=== PATIENT | female | born 1940 | race Caucasian/White ===

== ENCOUNTER 2021-02-18 08:58 | Day surgery (SDC) | payer MEDICARE, OTHER, SELFPAY ==
[2021-02-12 13:57] VITALS: BMI 35.1
--- NOTE | 2021-02-13 12:17 | MHC.SHP ---
Pre-Procedural Eval Section A The patient is an INPATIENT: No The History & Physical has been completed within 30 days and I have reviewed it.: Yes Section B Chief Complaint: Cataract Right Eye Allergies: Allergies Allergy/AdvReac Type Severity Reaction Status Date / Time codeine Allergy Unknown- Verified 02/13/21 12:02 per H&P levofloxacin [From Levaquin] Allergy unknown - Verified 02/13/21 12:02 per H&P Plan Diagnosis/Plan: Unchanged I have reviewed the history and physical and performed a pertinent physical examination on my patient. No changes have occurred unless specified.
--- NOTE | 2021-02-15 09:43 | HO.ANESPROP2 ---
Documented by User: Tari Conwayney 02/15/21 09:49 HPI - Anesthesia Eval Consult details Narrative: 80yo F for Right Cataract Extraction IOL Insertion No prev cataract on record PCP cleared [facility] Past Medical History Medical History COVID-19 vaccine series completed DM type 2 (diabetes mellitus, type 2) History of skin cancer Hypertension On beta adalberto at home Surgical History Surgical History History of arthroscopy of both knees History of back surgery History of bilateral carpal tunnel release History of total bilateral knee replacement History of umbilical hernia repair Hx of section Hx of cholecystectomy Hx of foot surgery Hx of hysterectomy S/P lumbar microdiscectomy Social History Social History Are you a primary infant childcare provider to a significant other at home: No Do you presently have visiting nurse or other home services: No Smoking Status: Former smoker Smoking Quit Date: 1962 Second Hand Smoke Exposure: No Use of substances other than those prescribed or required for medical reasons: No Have you been hit, kicked, punched, or otherwise hurt by someone within the past year? If so, by whom?: No Are you DNR?: No Advance Directives: No Advance Directives Information Provided: No Advance Directives on File: No Recently lost weight without trying: No Eating poorly because of decreased appetite: No Nutrition Risks: No Nutritional Risk Meds Allergies Allergy/AdvReac Type Severity Reaction Status Date / Time codeine Allergy Unknown- Verified 02/13/21 12:02 per H&P levofloxacin [From Levaquin] Allergy unknown - Verified 02/13/21 12:02 per H&P Home Medications Medication Instructions Recorded Confirmed Last Taken Type celecoxib 1 tab PO BID 02/12/21 02/12/21 Unknown History fluticasone propionate 2 spray INTRANASAL DAILY 02/12/21 02/12/21 Unknown History metformin 1 tab PO BID 02/12/21 02/12/21 Unknown History metoprolol succinate 1 tab PO DAILY 02/12/21 02/12/21 02/18/21 History omeprazole 1 cap PO DAILY 02/12/21 02/12/21 02/18/21 History Exam Exam Date and Time: February 15, 2021 0943 Height,Weight and Vital Signs: Height 5 ft 5 in Weight 95.708 kg Assessment and Plan Assessment Anesthesia Assessment: Chart Reviewed Documented by User: Brittny Bansal 02/18/21 10:44 PMF Past Medical History Medical History COVID-19 vaccine series completed DM type 2 (diabetes mellitus, type 2) History of skin cancer Hypertension On beta adalberto at home Family History Family history of problems with anesthesia: No Surgical History Surgical History History of arthroscopy of both knees History of back surgery History of bilateral carpal tunnel release History of total bilateral knee replacement History of umbilical hernia repair Hx of section Hx of cholecystectomy Hx of foot surgery Hx of hysterectomy S/P lumbar microdiscectomy History of Problems with Anesthesia: No Social History Social History Are you a primary infant childcare provider to a significant other at home: No Do you presently have visiting nurse or other home services: No Smoking Status: Former smoker Smoking Quit Date: 1962 Second Hand Smoke Exposure: No Use of substances other than those prescribed or required for medical reasons: No Have you been hit, kicked, punched, or otherwise hurt by someone within the past year? If so, by whom?: No Are you DNR?: No Advance Directives: No Advance Directives Information Provided: No Advance Directives on File: No Recently lost weight without trying: No Eating poorly because of decreased appetite: No Nutrition Risks: No Nutritional Risk Meds Allergies Allergy/AdvReac Type Severity Reaction Status Date / Time codeine Allergy Unknown- Verified 02/13/21 12:02 per H&P levofloxacin [From Levaquin] Allergy unknown - Verified 02/13/21 12:02 per H&P Home Medications Medication Instructions Recorded Confirmed Last Taken Type celecoxib 1 tab PO BID 02/12/21 02/12/21 Unknown History fluticasone propionate 2 spray INTRANASAL DAILY 02/12/21 02/12/21 Unknown History metformin 1 tab PO BID 02/12/21 02/12/21 Unknown History metoprolol succinate 1 tab PO DAILY 02/12/21 02/12/21 02/18/21 History omeprazole 1 cap PO DAILY 02/12/21 02/12/21 02/18/21 History Exam Height,Weight and Vital Signs: Vital Signs Temp Pulse Resp BP Pulse Ox 02/18/21 10:38 98.0 F 68 16 142/79 H 97 Pertinent Lab Results Pertinent Lab Results: POC 107 Airway Mallampati Class: II TM Dist: >3cm Neck ROM: Full Heart: RRR Lungs: CTAB Assessment and Plan Assessment Anesthesia Assessment: Anesthesia Plan Discussed and Chart Reviewed Final Anesthetic Review NPO: Yes ASA Class: II Final Preanesthetic Review: No Changes in Pt Med Stat, Meds/Allgs Chart Reviewed, Consent Obtained/Reviewed and Anes Risks/Benef Reviewed Patient Risk: Low Procedure Risk: Low Assessment/Block/Sedation in SS: Assess/Block/Sedation-SS Anesthetic Plan Anesthetic Plan: MAC: Disposition: Standard PACU
[2021-02-18] MEDS: Tetracaine HCl/PF 0.5% Oph Sol 4 ML DROPS 1 DROP EYE-RIGHT (10:33)
[2021-02-18] MEDS: Tropicamide 1 % Ophth Sol 3 ML BTL 1 DROP EYE-RIGHT ×3 (10:36→10:47)
[2021-02-18 10:38] VITALS: BP 142/79; PULSE 68; RESP 16; TEMP 36.7; O2SAT 97
[2021-02-18] MEDS: Phenylephrine HCL 2.5% Oph SoL 2 ML BOTTLE 1 DROP EYE-RIGHT ×3 (10:39→10:51)
[2021-02-18 10:45] LABS: Glucose, Whole Blood 107 mg/dL (60-115)
[2021-02-18] MEDS: Lactated Ringers 500 ML 50 ML IV (10:56)
--- NOTE | 2021-02-18 11:38 | HO.PNOPHT ---
Ophthalmology Procedure Procedure Date of Service: 02/18/21 Ophthalmology Viscoelastic: Healon Duet Dual Pack Pro Ophthalmology Lenses: TECNIS [id number] (20.5) Procedure Notes: PREOPERATIVE DIAGNOSIS: Decreased visual acuity right eye secondary to cataract POSTOPERATIVE DIAGNOSIS: Same PROCEDURE: Right cataract extraction with intraocular lens insertion SURGEON: Oscar Quintero M.D. ANESTHESIA: Topical/MAC ESTIMATED BLOOD LOSS: None COMPLICATIONS: None After obtaining informed consent, the patient was brought to the operating room suite and placed in the supine position. After adequate sedation per anesthesia, topical drops of Tetracaine were given to the right eye. The eye was then prepped and draped in the usual sterile fashion. The operating room microscope was then positioned over the operative eye and a lid speculum placed. A paracentesis was created. Viscoelastic was then instilled into the anterior chamber. A three plane incision was then created temporally, utilizing a 2.85 mm keratome. Capsulotomy forceps were then utilized to create a circular tear capsulotomy. Hydrodissection and hydrodelineation were carried out until adequate mobilization of the nucleus occurred. Phacoemulsification was then utilized to remove the dense central nucleus followed by removal of the cortical material utilizing the automated aspiration irrigation unit. Viscoelastic was instilled into the posterior capsular bag followed by placement of a posterior chamber intraocular lens without difficulty. The residual Viscoelastic was then removed utilizing the automated IA machine. The wound was checked and found to be watertight. The patient tolerated the procedure well and the lid speculum was removed. Intracameral injection of Vigamox 0.1 mL followed by a subtenon injection of Kenalog-40 0.2 mL were administered. The patient will be seen in the a.m.
[2021-02-18 12:04] VITALS: BP 150/65; PULSE 58; RESP 16; TEMP 36.4; O2SAT 97
== END 2021-02-18 12:33 | disposition home or self-care (01) ==
PROVIDERS: PCP Internal Medicine; Visit Provider Ophthalmology
PROC: (CPT 66985; principal; 2021-02-18 11:20)
DX: H25.11 Age-related nuclear cataract, right eye (principal); H54.7 Unspecified visual loss; H35.031 Hypertensive retinopathy, right eye; I10 Essential (primary) hypertension; E11.9 Type 2 diabetes mellitus without complications; Z79.84 Long term (current) use of oral hypoglycemic drugs; Z79.899 Other long term (current) drug therapy; Z85.828 Personal history of other malignant neoplasm of skin; Z87.891 Personal history of nicotine dependence
CPT/HCPCS: 66984; 82947; J2250; J2405; J3010; J3300; V2632

== ENCOUNTER 2021-03-04 09:08 | Day surgery (SDC) | payer MEDICARE, OTHER, SELFPAY ==
[2021-02-12 14:00] VITALS: BMI 35.1
--- NOTE | 2021-02-27 12:25 | P.CONAN_ITS ---
Documented by User: Tari Griggs 02/27/21 12:26 HPI - Anesthesia Eval Consult details Narrative: 80yo F for Left Cataract Extraction IOL Insertion Right eye 5/3 with TIVA: Fent 25, MIdaz 1 PCP cleared [facility] Past Medical History Medical History COVID-19 vaccine series completed DM type 2 (diabetes mellitus, type 2) History of skin cancer Hypertension On beta adalberto at home Family History Family history of problems with anesthesia: No Surgical History Surgical History History of arthroscopy of both knees History of back surgery History of bilateral carpal tunnel release History of total bilateral knee replacement History of umbilical hernia repair Hx of cataract extraction Hx of section Hx of cholecystectomy Hx of foot surgery Hx of hysterectomy S/P lumbar microdiscectomy History of Problems with Anesthesia: No Social History Social History Are you a primary progressive care manager to a significant other at home: No Do you presently have visiting nurse or other home services: No Smoking Status: Former smoker Smoking Quit Date: 1962 Second Hand Smoke Exposure: No Use of substances other than those prescribed or required for medical reasons: No Have you been hit, kicked, punched, or otherwise hurt by someone within the past year? If so, by whom?: No Are you DNR?: No Advance Directives: No Advance Directives Information Provided: No Advance Directives on File: No Recently lost weight without trying: No Eating poorly because of decreased appetite: No Nutrition Risks: No Nutritional Risk Meds Allergies Allergy/AdvReac Type Severity Reaction Status Date / Time codeine Allergy Unknown- Verified 02/13/21 12:02 per H&P levofloxacin [From Levaquin] Allergy unknown - Verified 02/13/21 12:02 per H&P Home Medications Medication Instructions Recorded Confirmed Last Taken Type celecoxib 1 tab PO BID 02/12/21 02/12/21 Unknown History fluticasone propionate 2 spray INTRANASAL DAILY 02/12/21 02/12/21 Unknown History metformin 1 tab PO BID 02/12/21 02/12/21 Unknown History metoprolol succinate 1 tab PO DAILY 02/12/21 02/12/21 02/18/21 History omeprazole 1 cap PO DAILY 02/12/21 02/12/21 02/18/21 History Exam Exam Date and Time: February 27, 2021 1225 Height,Weight and Vital Signs: Height 5 ft 5 in Weight 95.708 kg Assessment and Plan Assessment Anesthesia Assessment: Chart Reviewed Documented by User: Brittny Bansal 03/04/21 11:00 PMFSH Past Medical History Medical History COVID-19 vaccine series completed DM type 2 (diabetes mellitus, type 2) History of skin cancer Hypertension On beta adalberto at home Surgical History Surgical History History of arthroscopy of both knees History of back surgery History of bilateral carpal tunnel release History of total bilateral knee replacement History of umbilical hernia repair Hx of cataract extraction Hx of section Hx of cholecystectomy Hx of foot surgery Hx of hysterectomy S/P lumbar microdiscectomy Social History Social History Are you a primary progressive care manager to a significant other at home: No Do you presently have visiting nurse or other home services: No Smoking Status: Former smoker Smoking Quit Date: 1962 Second Hand Smoke Exposure: No Use of substances other than those prescribed or required for medical reasons: No Have you been hit, kicked, punched, or otherwise hurt by someone within the past year? If so, by whom?: No Are you DNR?: No Advance Directives: No Advance Directives Information Provided: No Advance Directives on File: No Recently lost weight without trying: No Eating poorly because of decreased appetite: No Nutrition Risks: No Nutritional Risk Meds Allergies Allergy/AdvReac Type Severity Reaction Status Date / Time codeine Allergy Unknown- Verified 02/13/21 12:02 per H&P levofloxacin [From Levaquin] Allergy unknown - Verified 02/13/21 12:02 per H&P Home Medications Medication Instructions Recorded Confirmed Last Taken Type celecoxib 1 tab PO BID 02/12/21 02/12/21 Unknown History fluticasone propionate 2 spray INTRANASAL DAILY 02/12/21 02/12/21 Unknown History metformin 1 tab PO BID 02/12/21 02/12/21 Unknown History metoprolol succinate 1 tab PO DAILY 02/12/21 02/12/21 02/18/21 History omeprazole 1 cap PO DAILY 02/12/21 02/12/21 02/18/21 History Exam Height,Weight and Vital Signs: Vital Signs Temp Pulse Resp BP Pulse Ox 03/04/21 10:35 97.3 F 62 18 141/71 H 97 Pertinent Lab Results Pertinent Lab Results: POC 117 Airway Mallampati Class: II TM Dist: >3cm Neck ROM: Full Heart: RRR Lungs: CTAB Assessment and Plan Assessment Anesthesia Assessment: Anesthesia Plan Discussed and Chart Reviewed Final Anesthetic Review NPO: Yes ASA Class: II Final Preanesthetic Review: No Changes in Pt Med Stat, Meds/Allgs Chart Reviewed, Consent Obtained/Reviewed and Anes Risks/Benef Reviewed Patient Risk: Low Procedure Risk: Low Assessment/Block/Sedation in SS: Assess/Block/Sedation-SS Anesthetic Plan Anesthetic Plan: MAC: Disposition: Standard PACU
[2021-03-04 10:35] VITALS: BP 141/71; PULSE 62; RESP 18; TEMP 36.3; O2SAT 97
[2021-03-04] MEDS: Tetracaine HCl/PF 0.5% Oph Sol 4 ML DROPS 1 DROP EYE-LEFT (10:51)
[2021-03-04] MEDS: Tropicamide 1 % Ophth Sol 3 ML BTL 1 DROP EYE-LEFT ×3 (10:53→10:59)
[2021-03-04] MEDS: Lactated Ringers 500 ML 50 ML IV (10:54)
[2021-03-04] MEDS: Phenylephrine HCL 2.5% Oph SoL 2 ML BOTTLE 1 DROP EYE-LEFT ×3 (10:55→11:01)
--- NOTE | 2021-03-04 11:07 | HO.PNOPHT ---
Ophthalmology Procedure Procedure Date of Service: 03/04/21 Ophthalmology Viscoelastic: Healct Duet Dual Pack Pro Ophthalmology Lenses: TECMARY BETH [id number] (22) Procedure Notes: PREOPERATIVE DIAGNOSIS: Decreased visual acuity left eye secondary to cataract POSTOPERATIVE DIAGNOSIS: Same PROCEDURE: Left cataract extraction with intraocular lens insertion SURGEON: Oscar Quintero M.D. ANESTHESIA: Topical/MAC ESTIMATED BLOOD LOSS: None COMPLICATIONS: Broken trailing haptic After obtaining informed consent, the patient was brought to the operation room suite and placed in the supine position. After adequate sedation per anesthesia, topical drops of Tetracaine were given to the left eye. The eye was then prepped and draped in the usual sterile fashion. The operating room microscope was then positioned over the operative eye and a lid speculum placed. A paracentesis was created. Viscoelastic was then instilled into the anterior chamber. A three plane incision was then created temporally, utilizing a 2.85 mm keratome. Capsulotomy forceps were then utilized to create a circular tear capsulotomy. Hydrodissection and hydrodelineation were carried out until adequate mobilization of the nucleus occurred. Phacoemulsification was then utilized to remove the dense central nucleus followed by removal of the cortical material utilizing the automated aspiration irrigation unit. Viscoat elastic was instilled into the posterior capsular bag followed by placement of a posterior chamber intraocular lens without difficulty.The trailing haptic was broken, the PCIOL was exchanged intraocularly. The residual Viscoat elastic was then removed utilizing the automated IA machine. The wound was check and found to be watertight. The patient tolerated the procedure well and the lid speculum was removed. Intracameral injection of Vigamox 0.1 mL followed by a subtenon injection of Kenalog-40 0.2 mL were administered. The patient will be seen in the a.m.
[2021-03-04 11:21] LABS: Glucose, Whole Blood 117 mg/dL (60-115)
[2021-03-04 11:34] VITALS: BP 134/62; PULSE 55; RESP 18; TEMP 36.4; O2SAT 94
== END 2021-03-04 11:55 | disposition home or self-care (01) ==
PROVIDERS: PCP Internal Medicine; Visit Provider Ophthalmology
PROC: (CPT 66985; principal; 2021-03-04 11:40)
DX: T85.29XA Other mechanical complication of intraocular lens, initial encounter (principal); H25.12 Age-related nuclear cataract, left eye; Y83.1 Surgical operation with implant of artificial internal device as the cause of abnormal reaction of the patient, or of later complication, without mention of misadventure at the time of the procedure; Y92.234 Operating room of hospital as the place of occurrence of the external cause
CPT/HCPCS: 66984; 66986; 82947; J3010; J3300; V2632

== ENCOUNTER 2025-01-10 13:31 | Outpatient (AMB) | payer MEDICARE, OTHER, SELFPAY ==
--- NOTE | 2025-01-10 13:26 | MHC.PC.OV ---
Vital Signs 01/10/25 13:33 Height 5 ft 5 in Weight 179 lb BMI 29.8 BP 138/76 Respiration 16 Pulse 74 Pulse Source Pulse Oximeter Temp 97.8 F Temp Source Temporal Artery Scan Pulse Oximetry (%) 99 Oxygen Delivery Method Room Air Intake Visit Reasons: New patient Line Up Worker Required: No Accompanied by: Self / Same As Patient Allergies codeine Allergy (Verified 01/10/25 13:26) Unknown- per H&P levofloxacin [From Levaquin] Allergy (Verified 01/10/25 13:26) unknown - per H&P Tobacco use date assessed: 01/10/25 Fall risk assessment: No Falls in past year Last assessed Fall Risk: 01/10/25 Dental Screening Dental Screen Date: 01/10/25 Did you have a dental visit in the last 12 months?: Yes Did you have a dental problem in the last 6 months where you did not have access to dental care?: No PFSH Medical History COVID-19 vaccine series completed History of skin cancer On beta adalberto at home Hypertension DM type 2 (diabetes mellitus, type 2) Surgical History Hx of cataract extraction History of back surgery History of umbilical hernia repair History of total bilateral knee replacement History of bilateral carpal tunnel release History of arthroscopy of both knees Hx of cholecystectomy Hx of section Hx of hysterectomy S/P lumbar microdiscectomy Hx of foot surgery Family History (Updated 01/10/25 @ 13:41 by JOSUÉ Siddiqui) Mother AD (Alzheimer's disease) Father Kidney failure Social History (Updated 01/10/25 @ 13:41 by JOSUÉ Siddiqui) Housing: House Are you a primary career development counselor to a significant other at home: No Do you presently have visiting nurse or other home services: No Alcohol intake: current Alcohol intake frequency: does not drink Patient Tobacco Use Status: Former Tobacco user service: No Current occupational status: retired Cognitive needs: No Hearing needs: No Vision needs: Yes (rx glasses) Questionnaire PHQ-9 Over the last 2 weeks, how often have you been bothered by any of the following problems? 1. Little interest or pleasure in doing things: not at all 2. Feeling down, depressed, or hopeless: not at all 3. Trouble falling or staying asleep, or sleeping too much: not at all 4. Feeling tired or having little energy: not at all 5. Poor appetite or overeating: not at all 6. Feeling bad about yourself - or that you are a failure or have let yourself or your family down: not at all 7. Trouble concentrating on things, such as reading the newspaper or watching television: not at all 8. Moving or speaking so slowly that other people could have noticed. Or the opposite - being so fidgety or restless that you have been moving around a lot more than usual: not at all 9. Thoughts that you would be better off or of hurting yourself in some way: not at all Total score: 0 Source: Developed by Drs. Mo Cid, Jennifer Santamaria, Rip Medina and colleagues, with an educational wilmar from [employer]. Thrive Questionnaire Date Thrive assessed: 01/10/25 I am a: Patient What is your living situation today?: I have a steady place to live Within the past 12 months, did the food you bought not last and you didn't have the money to get more?: Never true Within the past 12 months, did you worry whether your food would run out before you got money to buy more?: Never true Do you have trouble paying for medicines?: No Do you have trouble getting transportation to medical appointments?: No Do you have trouble paying your heating and electricity bill?: No Do you have trouble taking care of your child, family member or friend?: No Do you have trouble with day-to-day activities such as bathing, preparing meals, shopping, managing finances, etc.?: No Are you currently unemployed and looking for a job?: No Are you interested in more education?: No Please select the resources that you would like help with: None THRIVE Score: 0 AUDIT C Alcohol Use Questionnaire (AUDIT-C) 1. How often do you have a drink containing alcohol?: Never 3. How often do you have six or more drinks on one occasion?: Never Total Score: 0 ANNAMARIA-7 AMB Questionnaire ANNAMARIA-7 Date ANNAMARIA - 7 assessed: 01/10/25 Feeling nervous, anxious, or on edge: 0 = Not at all Not being able to stop or control worryin = Not at all Worrying too much about different things: 0 = Not at all Trouble relaxin = Not at all Being so restless that it is hard to sit still: 0 = Not at all Becoming easily annoyed or irritable: 0 = Not at all Feeling afraid as if something awful might happen: 0 = Not at all Total ANNAMARIA-7 score (0-4 normal; 5-9 mild; 10-14 moderate; 15-21 severe): 0 Source: Developed by Drs. Mo Cid, Jennifer Santamaria, Rip Medina and colleagues, with an educational wilmar from [employer]. Physical exam (Primary Care) Vital Signs: Last Vital Signs Temp 97.8 F 01/10/25 13:33 Pulse 74 01/10/25 13:33 Resp 16 01/10/25 13:33 BP 138/76 01/10/25 13:33 Pulse Ox 99 01/10/25 13:33 Oxygen Delivery Method Room Air 01/10/25 13:33 BMI result Body Mass Index 29.8 Tobacco/Smoking Status: Tobacco use Status Tobacco use date assessed 01/10/25 01/10/25 13:29 Patient Tobacco Use Status Former Tobacco user 01/10/25 13:41 PHQ-9: PHQ-9 Score PHQ-9: Total score 0 01/10/25 13:41 Thrive Assessment: Date of Thrive Assessment Date Thrive assessed 01/10/25 01/10/25 13:29 Coding Level of Care Code New Pt Level 4 (03715) Complex EM visit Add On G2211 Diagnoses Wart of face B07.9 Assessment & Plan Assessment & Plan (1) Wart of face: Code(s): B07.9 - Viral wart, unspecified Plan: Prior history of basal cell carcinoma on the nose. Referral for Dermatology made Plan History of Present Illness The patient is an 84-year-old female presenting for a follow-up on a precancerous lesion and to discuss her medication regimen. On her face, approximately 22 years prior, she had a basal cell carcinoma treated by excision and a skin graft by a plastic surgeon. Recently, she has noticed a recurring scab at the site, causing discomfort, especially when manually removed, and has been previously evaluated by dermatology. Additionally, she seeks the management of her hypertensive condition, currently on Metoprolol, with a stable cardiovascular profile. 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 - Exercises regularly using a recumbent stationary bicycle. - Resides in [place] for 22 years. - Drives both day and night without difficulty, post-cataract surgery. - Has undergone bilateral knee replacements, enhancing mobility. Review of Systems - Skin: Reports recurring scab formation on the face, previously identified as basal cell carcinoma. - General: Denies any new health concerns. Physical Exam General: Cooperative and healthy appearing Nutritional Appearance: Well nourished Orientation/consciousness: Patient oriented x3 Limitations: No limitations Head: Normal to inspection General: Appearance normal, both eyes and all related structures Neck: Normal visual inspection Chest: Normal palpation of entire chest wall Respiratory: Normal respiratory effort Neurology: Patient oriented x3 Nasal Septum: Skin, verrucous wart Results Plan Referral to a dish person in [place] is provided for further evaluation of the recurring precancerous lesion. I outlined the process for prescription refills of Metoprolol, emphasizing the need to coordinate with her pharmacy well before the medication runs out. Further management includes monitoring her hypertension and ensuring her blood work is reviewed periodically to assess health status. Patient was informed and verbally consented to the use of an ambient scribe for clinic note documentation during this visit. Discussion Notes I discussed with the patient the need for further dermatological evaluation of the recurring facial lesion due to personal discomfort and the lesion's potential progression if untreated. We reviewed the process for medication refills, emphasizing outreach to her pharmacy. Discussions included her satisfaction with her current physical capability, post knee replacement, and cataract surgery, which have enhanced her quality of life. Follow-up care, particularly for skin assessment, was highlighted. Patient Instructions - Initiate contact with your pharmacy for Metoprolol refills one week before the medication is depleted. - Attend referred dermatology appointment in [place] for the facial lesion. - Maintain regular exercises on your stationary bike. - Report any changes in symptoms or discomfort related to the skin lesion promptly. Orders: Referrals Dermatology Referral B07.9 - Viral wart, unspecified
[2025-01-10 13:33] VITALS: BP 138/76; PULSE 74; RESP 16; TEMP 36.6; O2SAT 99; BMI 29.8
== END 2025-01-10 13:55 | disposition home or self-care (01) ==
LOC: HO.HMCSH 13:31
PROVIDERS: PCP Internal Medicine; Visit Provider Internal Medicine
DX: B07.9 Viral wart, unspecified (principal)

== ENCOUNTER → 2025-01-10 13:31 | Outpatient (BNVA) | payer MEDICARE, OTHER, SELFPAY | PROVIDERS: PCP Internal Medicine; Visit Provider Internal Medicine | DX: B07.9 Viral wart, unspecified (principal) | CPT/HCPCS: 99202 ==

== ENCOUNTER 2025-07-11 14:50 | Outpatient (AMB) | payer MEDICARE, OTHER, SELFPAY ==
[2025-07-11 14:56] VITALS: BP 158/80; PULSE 74; RESP 14; TEMP 36.8; O2SAT 97; BMI 30.4
--- NOTE | 2025-07-11 14:56 | MHC.PC.OV ---
Vital Signs 07/11/25 14:56 Height 5 ft 5 in Weight 183 lb BMI 30.4 BP 158/80 H Respiration 14 Pulse 74 Pulse Source Pulse Oximeter Temp 98.2 F Temp Source Temporal Artery Scan Pulse Oximetry (%) 97 Oxygen Delivery Method Room Air Intake Visit Reasons: 6 month f/u Cloth Grader Required: No Accompanied by: Self / Same As Patient Allergies codeine Allergy (Verified 07/11/25 14:56) Unknown- per H&P levofloxacin (From Levaquin) Allergy (Verified 07/11/25 14:56) unknown - per H&P Tobacco use date assessed: 07/11/25 Dental Screening Dental Screen Date: 01/10/25 [facility] Medical History (Updated 07/11/25 @ 15:36 by Luis Carmichael MD) Essential hypertension COVID-19 vaccine series completed History of skin cancer On beta adalberto at home Hypertension DM type 2 (diabetes mellitus, type 2) Surgical History Hx of cataract extraction History of back surgery History of umbilical hernia repair History of total bilateral knee replacement History of bilateral carpal tunnel release History of arthroscopy of both knees Hx of cholecystectomy Hx of section Hx of hysterectomy S/P lumbar microdiscectomy Hx of foot surgery Family History Mother AD (Alzheimer's disease) Father Kidney failure Social History Housing: House Are you a primary cardiac care nurse to a significant other at home: No Do you presently have visiting nurse or other home services: No Alcohol intake: current Alcohol intake frequency: does not drink Patient Tobacco Use Status: Former Tobacco user service: No Current occupational status: retired Cognitive needs: No Hearing needs: No Vision needs: Yes (rx glasses) Questionnaire PHQ-9 Over the last 2 weeks, how often have you been bothered by any of the following problems? 1. Little interest or pleasure in doing things: not at all 2. Feeling down, depressed, or hopeless: not at all 3. Trouble falling or staying asleep, or sleeping too much: not at all 4. Feeling tired or having little energy: not at all 5. Poor appetite or overeating: not at all 6. Feeling bad about yourself - or that you are a failure or have let yourself or your family down: not at all 7. Trouble concentrating on things, such as reading the newspaper or watching television: not at all 8. Moving or speaking so slowly that other people could have noticed. Or the opposite - being so fidgety or restless that you have been moving around a lot more than usual: not at all 9. Thoughts that you would be better off or of hurting yourself in some way: not at all Total score: 0 Source: Developed by Drs. Mo Cid, Jennifer Santamaria, Rip Medina and colleagues, with an educational wilmar from [employer]. Thrive Questionnaire Date Thrive assessed: 01/10/25 I am a: Patient What is your living situation today?: I have a steady place to live Within the past 12 months, did the food you bought not last and you didn't have the money to get more?: Never true Within the past 12 months, did you worry whether your food would run out before you got money to buy more?: Never true Do you have trouble paying for medicines?: No Do you have trouble getting transportation to medical appointments?: No Do you have trouble paying your heating and electricity bill?: No Do you have trouble taking care of your child, family member or friend?: No Do you have trouble with day-to-day activities such as bathing, preparing meals, shopping, managing finances, etc.?: No Are you currently unemployed and looking for a job?: No Are you interested in more education?: No Please select the resources that you would like help with: None THRIVE Score: 0 AUDIT C Alcohol Use Questionnaire (AUDIT-C) 1. How often do you have a drink containing alcohol?: Never 3. How often do you have six or more drinks on one occasion?: Never Total Score: 0 ANNAMARIA-7 AMB Questionnaire ANNAMARIA-7 Date ANNAMARIA - 7 assessed: 01/10/25 Feeling nervous, anxious, or on edge: 0 = Not at all Not being able to stop or control worryin = Not at all Worrying too much about different things: 0 = Not at all Trouble relaxin = Not at all Being so restless that it is hard to sit still: 0 = Not at all Becoming easily annoyed or irritable: 0 = Not at all Feeling afraid as if something awful might happen: 0 = Not at all Total ANNAMARIA-7 score (0-4 normal; 5-9 mild; 10-14 moderate; 15-21 severe): 0 Source: Developed by Drs. Mo Cid, Jennifer Santamaria, Rip Medina and colleagues, with an educational wilmar from [employer]. Physical exam (Primary Care) Vital Signs: Last Vital Signs Temp 98.2 F 07/11/25 14:56 Pulse 74 07/11/25 14:56 Resp 14 07/11/25 14:56 BP 158/80 H 07/11/25 14:56 Pulse Ox 97 07/11/25 14:56 Oxygen Delivery Method Room Air 07/11/25 14:56 BMI result Body Mass Index 30.4 Tobacco/Smoking Status: Tobacco use Status Tobacco use date assessed 07/11/25 07/11/25 14:58 Patient Tobacco Use Status Former Tobacco user 07/11/25 14:58 PHQ-9: PHQ-9 Score PHQ-9: Total score 0 07/11/25 15:14 Thrive Assessment: Date of Thrive Assessment Date Thrive assessed 01/10/25 07/11/25 14:58 Office Procedures Flu Questionnaire Does the patient have a severe egg allergy?: No Does the patient have severe life threatening allergies?: No Does the patient have a fever or illness today?: No Has the patient ever had Guillain-[place] Syndrome?: No Has the patient ever had any past reaction to a flu shot?: No Immunizations Fluarix [id number] (PF) 45 mcg (15 mcg x 3)/0.5 mL IM syringe Performing Provider: Luis Carmichael MD [facility] Documented (not given) by: JOSUÉ Siddiqui on 07/11/25 15:14 Reason Not Given: Patient Refused Coding Level of Care Code Est Pt Level 4 (30750) Complex EM visit Add On G2211 Diagnoses Essential hypertension I10 Assessment & Plan Assessment & Plan (1) Essential hypertension: Code(s): I10 - Essential (primary) hypertension Category: Medical Plan: History of Present Illness The patient is an 84-year-old female presenting for a follow-up on a precancerous lesion and to discuss her medication regimen. On her face, approximately 22 years prior, she had a basal cell carcinoma treated by excision and a skin graft by a plastic surgeon. Recently, she has noticed a recurring scab at the site, causing discomfort, especially when manually removed, and has been previously evaluated by dermatology. Additionally, she seeks the management of her hypertensive condition, currently on Metoprolol, with a stable cardiovascular profile. 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 - Exercises regularly using a recumbent stationary bicycle. - Resides in [place] for 22 years. - Drives both day and night without difficulty, post-cataract surgery. - Has undergone bilateral knee replacements, enhancing mobility. Review of Systems - Skin: Reports recurring scab formation on the face, previously identified as basal cell carcinoma. - General: Denies any new health concerns. Physical Exam General: Cooperative and healthy appearing Nutritional Appearance: Well nourished Orientation/consciousness: Patient oriented x3 Limitations: No limitations Head: Normal to inspection General: Appearance normal, both eyes and all related structures Neck: Normal visual inspection Chest: Normal palpation of entire chest wall Respiratory: Normal respiratory effort Neurology: Patient oriented x3 Results Plan Referral to a enrollment representative in [place] is provided for further evaluation of the recurring precancerous lesion. I outlined the process for prescription refills of Metoprolol, emphasizing the need to coordinate with her pharmacy well before the medication runs out. Further management includes monitoring her hypertension and ensuring her blood work is reviewed periodically to assess health status. Patient was informed and verbally consented to the use of an ambient scribe for clinic note documentation during this visit. Discussion Notes I discussed with the patient the need for further dermatological evaluation of the recurring facial lesion due to personal discomfort and the lesion's potential progression if untreated. We reviewed the process for medication refills, emphasizing outreach to her pharmacy. Discussions included her satisfaction with her current physical capability, post knee replacement, and cataract surgery, which have enhanced her quality of life. Follow-up care, particularly for skin assessment, was highlighted. Patient Instructions - Initiate contact with your pharmacy for Metoprolol refills one week before the medication is depleted. - Attend referred dermatology appointment in [place] for the facial lesion. - Maintain regular exercises on your stationary bike. - Report any changes in symptoms or discomfort related to the skin lesion promptly. Orders: Orders Influenza [id number] Immunization Today Z23 - Encounter for immunization Liver Panel Today I10 - Essential (primary) hypertension Hemoglobin A1c Today I10 - Essential (primary) hypertension UA and rflx microscopic Today I10 - Essential (primary) hypertension Basic Metabolic Panel Today I10 - Essential (primary) hypertension Complete Blood Count no Diff Today I10 - Essential (primary) hypertension Lipid Panel Today I10 - Essential (primary) hypertension Thyroid Stimulating Hormone Today I10 - Essential (primary) hypertension
--- OUTSIDE RECORDS SUMMARY | 2025-07-11 17:56 | XMS_ITS | Clinical Summary ---
Author Organization [facility] Address [address] [place] [address] Phone Care Team Providers Care Rn Camp Name Role Phone Luis Carmichael MD Primary Care Provider [phone] Surgical History Surgery Date Site/Laterality Comments HYSTERECTOMY Social History Tobacco Use Types Packs/Day Years Used Date Smoking Tobacco: Never Assessed Comments No Sex and Gender Information Value Date Recorded Sex Assigned at Not on file Legal Sex Female 2:35 AM EST Gender Identity Not on file Sexual Orientation Not on file Obstetrics History Para Term AB IAB SAB Ectopic Multiple Livin g Live Births 2 Last Filed Vital Signs Vital Sign Reading Time Taken Comments Blood Pressure - - Pulse - - Temperature - - Respiratory Rate - - Oxygen Saturation - - Inhaled Oxygen Concentration - - Weight 82.1 kg (181 lb) 03/29/2025 3:01 PM EDT Height 165.1 cm (5' 5 ) 03/29/2025 3:01 PM EDT Body Mass Index 30.12 03/29/2025 3:01 PM EDT Plan of Treatment Health Maintenance Due Date Last Done Comments DTaP,Tdap,and Td Vaccines (1 - Tdap) 1961 Pneumococcal Vaccine: 50+ Years (1 of 1 - PCV) 1992 RSV Immunization Adult Patients (1 - 1-dose 75+ series) 2017 Cholesterol Screening (Lipid Panel) 09/21/2022 Falls Risk Assessment 09/21/2022 Medicare Annual Wellness Visit 09/21/2022 Social Influencers of Health Screening 09/21/2022 Depression Screening 10/19/2024 Hypertension/CHF/CAD Annual BMP Blood Test 03/29/2025 COVID-19 Vaccine ( season) 2025 07/20/2024, 09/11/2023, 03/04/2022, Additional history exists Influenza Vaccine (#1) 2025 , 07/31/2023, 08/11/2022, Additional history exists Osteoporosis Screening (Bone Density Screening) 10/22/2030 10/22/2020 Zoster Vaccines Completed 06/02/2023, 03/04/2023 HIB Vaccines Aged Out No longer eligi ble based on patient's age to complete this topic HPV Vaccines Aged Out No longer eligi ble based on patient's age to complete this topic Hepatitis A Vaccines Aged Out No long er eligible based on patient's age to complete this topic Hepatitis B Vaccines Aged Out No long er eligible based on patient's age to complete this topic IPV Vaccines Aged Out No longer eligi ble based on patient's age to complete this topic MMR Vaccines Aged Out No longer eligi ble based on patient's age to complete this topic Meningococcal ACWY Vaccine Aged Out N o longer eligible based on patient's age to complete this topic Meningococcal B Vaccine Aged Out No l onger eligible based on patient's age to complete this topic RSV Immunization Patients Under 20 months Aged Out No longer eligible based on patient's age to complete this topic Varicella Vaccines Aged Out No longer eligible based on patient's age to complete this topic Procedures Procedure Name Priority Date/Time Associated Diagnosis Comments [facility] DEXA AXIAL SKELETON Routine 10/22/2020 2:10 PM EST Encounter for screening for osteoporosis from Last 3 Months or Most Recently Relevant to Health Maintenance Results * [facility] DEXA AXIAL SKELETON (10/22/2020 2:10 PM EST) Anatomical Region Laterality Modality Mammography 10/22/2020 10:3 1 AM EST Narrative 10/22/2020 2:10 PM EST [facility] Diagnostic Imaging Department [address] [place] [id number] Patient: CHI DONALDSON/Age/Sex: 1940 - 80 - F Unit#: [id number] Location/Status: SPDIMAM/REG CLI Mnemonic/Ordering Site: MAMDEXAAX/SPMAM Ordering Physician: OSCAR SHEPARD MD [facility]ub[facility] Dexa Axial Skeleton - 10/22/20 1103 HISTORY: The patient is a 80-year-old postmenopausal female with clinical concern for metabolic bone disease. Patient has had a fracture as an adult. FINDINGS: Dual energy x-ray absorptiometry of the lumbar spine and femurs is performed. There is significant right-sided facet sclerosis at L1-L2. Bone density is calculated utilizing L3 and L4 where there is still some facet sclerosis. The mean bone mineral density at L3-4 is 1.34 gm/cm2. This yields a T-score of 1.2 and a Z-score of 1.8 which is diagnostic of normal bone mineral density. Sclerosis of the facet articulation at L3-4 may elevate calculated bone mineral density. The mean bone mineral density of the femurs bilaterally is 0.895 gm/cm2. This yields a T-score of -0.9 and a Z-score of 0.2 which is diagnostic of normal bone mineral density, borderline osteopenia. IMPRESSION: 1. Normal bone mineral density within the lumbar spine. Normal bone mineral density average of the femurs, borderline for osteopenia. 2. FRAX analysis yields a 10-year probability of major osteoporotic fracture of 13.3 percent and a 10-year probability of hip fracture of 1.7 percent. Code 82094 Dictating Physician: CHRISTOPHER PALMER MD Electronically Signed by: CHRISTOPHER PALMER MD Dic Date/Time: 10/22/20 1405 Sign date/Time: 10/22/20 1410 Procedure Note Roxana Palmer MD - 10/07/2022 [facility] Diagnostic Imaging Department [address] [place] [id number] Patient: CHI DONALDSON Alcon Reyes/Age/Sex: 1940 - 80 - F Unit#: [id number] Location/Status: SPDIMAM/REG CLI Mnemonic/Ordering Site: MAMDEXAAX/SPMAM Ordering Physician: OSCAR SHEPARD MD Bubba Dexa Axial Skeleton - 10/22/201102 HISTORY: The patient is a 80-year-old postmenopausal female withclinical concern for metabolic bone disease. Patient has had a fracture as anadult. FINDINGS: Dual energy x-ray absorptiometry of the lumbar spine and femursis performed. There is significant right-sided facet sclerosis at L1-L2.Bone density is calculated utilizing L3 and L4 where there is still somefacet sclerosis. The mean bone mineral density at L3-4 is 1.34 gm/cm2. Thisyields a T-score of 1.2 and a Z-score of 1.8 which is diagnostic of normal bonemineral density. Sclerosis of the facet articulation at L3-4 may elevatecalculated bone mineral density. The mean bone mineral density of the femurs bilaterally is 0.895 gm/cm2.This yields a T-score of -0.9 and a Z-score of 0.2 which is diagnostic ofnormal bone mineral density, borderline osteopenia. IMPRESSION: 1. Normal bone mineral density within the lumbar spine. Normal bonemineral density average of the femurs, borderline for osteopenia. 2. FRAX analysis yields a 10-year probability of major osteoporoticfracture of 13.3 percent and a 10-year probability of hip fracture of 1.7 percent. Code 17921 Dictating Physician: CHRISTOPHER PALMER MD Electronically Signed by: CHRISTOPHER PALMER MD Dic Date/Time: 10/22/20 1405 Sign date/Time: 10/22/20 1410 Oscar Shepard MD IMG BI PROCEDURES Final Result from Last 3 Months or Most Recently Relevant to Health Maintenance Insurance MEDICARE Care Teams Rn Camp Relationship Specialty Start Date End Date Luis Carmichael MD PCP - General Internal Medicine 03/29/25
== END 2025-07-11 15:40 | disposition home or self-care (01) ==
LOC: HO.HMCSH 14:50
PROVIDERS: PCP Internal Medicine; Visit Provider Internal Medicine
DX: I10 Essential (primary) hypertension (principal); Z23 Encounter for immunization

== ENCOUNTER → 2025-07-11 14:50 | Outpatient (BNVA) | payer MEDICARE, OTHER, SELFPAY | PROVIDERS: PCP Internal Medicine; Visit Provider Internal Medicine | DX: I10 Essential (primary) hypertension (principal) | CPT/HCPCS: 90471; 99212 ==

== ENCOUNTER 2025-09-21 10:54 | Outpatient (AMB) | payer MEDICARE, OTHER, SELFPAY ==
--- NOTE | 2025-09-21 10:54 | A.OFFPC_ITS ---
Intake Visit Reasons: Laryngitis Manager Human Capital Required: No Allergies codeine Allergy (Verified 09/21/25 11:01) Unknown- per H&P levofloxacin (From Levaquin) Allergy (Verified 09/21/25 11:01) unknown - per H&P Medication List - Last Reconciled 09/21/25 by Funmi Flores PA-C amoxicillin-pot clavulanate 875-125 mg 1 tab PO BID 10 days celecoxib 1 tab PO BID codeine-guaifenesin 10-100 mg/5 mL 5 mL PO Q6H PRN loratadine 10 mg PO DAILY metoprolol succinate ER 50 mg PO DAILY omeprazole 1 cap PO DAILY prednisone 40 mg (2 x 20 mg) PO DAILY 3 days Saccharomyces boulardii (Daily Probiotic (S. boulardii)) 250 mg PO BID Tobacco use date assessed: 07/11/25 Dental Screening Dental Screen Date: 01/10/25 HPI HPI Comments History of Present Illness Details The patient is an 85 year old female presenting with pharyngitis, laryngitis, and otalgia which started on Thursday. Her symptoms began with an earache and she feels the illness is progressing to her chest. She has an associated cough productive of a small amount of mucus but denies any fever, wheezing, or difficulty breathing. She believes she was exposed to sick individuals on . The patient denies any known allergies. [facility] Medical History (Updated 09/21/25 @ 11:03 by Funmi Flores PA-C) Acute laryngopharyngitis Essential hypertension COVID-19 vaccine series completed History of skin cancer On beta adalberto at home Hypertension DM type 2 (diabetes mellitus, type 2) Surgical History Hx of cataract extraction History of back surgery History of umbilical hernia repair History of total bilateral knee replacement History of bilateral carpal tunnel release History of arthroscopy of both knees Hx of cholecystectomy Hx of section Hx of hysterectomy S/P lumbar microdiscectomy Hx of foot surgery Family History Mother AD (Alzheimer's disease) Father Kidney failure Social History Housing: House Are you a primary pet care technician to a significant other at home: No Do you presently have visiting nurse or other home services: No Alcohol intake: current Alcohol intake frequency: does not drink Patient Tobacco Use Status: Former Tobacco user service: No Current occupational status: retired Cognitive needs: No Hearing needs: No Vision needs: Yes (rx glasses) Questionnaire PHQ-9 Over the last 2 weeks, how often have you been bothered by any of the following problems? 1. Little interest or pleasure in doing things: not at all 2. Feeling down, depressed, or hopeless: not at all 3. Trouble falling or staying asleep, or sleeping too much: not at all 4. Feeling tired or having little energy: not at all 5. Poor appetite or overeating: not at all 6. Feeling bad about yourself - or that you are a failure or have let yourself or your family down: not at all 7. Trouble concentrating on things, such as reading the newspaper or watching television: not at all 8. Moving or speaking so slowly that other people could have noticed. Or the opposite - being so fidgety or restless that you have been moving around a lot more than usual: not at all 9. Thoughts that you would be better off or of hurting yourself in some way: not at all Total score: 0 Depression Screening Interpretation: Negative Depression Screening Done: Yes 72991 - PHQ-9 Billing: Yes Source: Developed by Drs. Mo Cid, Jennifer Santamaria, Rip Medina and colleagues, with an educational wilmar from [employer]. Thrive Questionnaire Date Thrive assessed: 01/10/25 I am a: Patient What is your living situation today?: I have a steady place to live Within the past 12 months, did the food you bought not last and you didn't have the money to get more?: Never true Within the past 12 months, did you worry whether your food would run out before you got money to buy more?: Never true Do you have trouble paying for medicines?: No Do you have trouble getting transportation to medical appointments?: No Do you have trouble paying your heating and electricity bill?: No Do you have trouble taking care of your child, family member or friend?: No Do you have trouble with day-to-day activities such as bathing, preparing meals, shopping, managing finances, etc.?: No Are you currently unemployed and looking for a job?: No Are you interested in more education?: No Please select the resources that you would like help with: None THRIVE Score: 0 AUDIT C Alcohol Use Questionnaire (AUDIT-C) 1. How often do you have a drink containing alcohol?: Never 3. How often do you have six or more drinks on one occasion?: Never Total Score: 0 Score Reviewed/Action Taken: No ANNAMARIA-7 AMB Questionnaire ANNAMARIA-7 Date ANNAMARIA - 7 assessed: 01/10/25 Feeling nervous, anxious, or on edge: 0 = Not at all Not being able to stop or control worryin = Not at all Worrying too much about different things: 0 = Not at all Trouble relaxin = Not at all Being so restless that it is hard to sit still: 0 = Not at all Becoming easily annoyed or irritable: 0 = Not at all Feeling afraid as if something awful might happen: 0 = Not at all Total ANNAMARIA-7 score (0-4 normal; 5-9 mild; 10-14 moderate; 15-21 severe): 0 Source: Developed by Drs. Mo Cid, Jennifer Santamaria, Rip Medina and colleagues, with an educational wilmar from [employer]. ANNAMARIA-7 Assessment Billing ANNAMARIA-7 Assessment Tool: ANNAMARIA-7 Assessment 93256 Review of Systems Const Details: - Constitutional: Denies fever. - ENT: Reports pharyngitis and otalgia. - Respiratory: Reports a sensation of the illness moving into her chest and a cough productive of a small amount of mucus. Denies wheezing or dyspnea. All systems reviewed & are unremarkable except as noted in HPI and below Physical exam (Primary Care) Tobacco/Smoking Status: Tobacco use Status Tobacco use date assessed 07/11/25 09/21/25 10:56 Patient Tobacco Use Status Former Tobacco user 09/21/25 10:56 PHQ-9: PHQ-9 Score PHQ-9: Total score 0 09/21/25 10:56 Depression Screening Interpretation: Negative Thrive Assessment: Date of Thrive Assessment Date Thrive assessed 01/10/25 09/21/25 10:56 Telehealth Telehealth Telehealth Platform: Telephone Location of provider rendering services: practice address Location of patient: address on file Patient Identification confirmed using: Name, : Yes Telehealth method: voice only Patient verbally consented to treatment: Yes Patient verbally consented to billing insurance company: Yes Patient informed of any privacy concerns related to visit: Yes Minutes spent on Phone/Video with Pt.: 15 Coding Level of Care Code Tele Est Pt Level 4 (03339) Complex visit Add On G2211 Diagnoses Acute laryngopharyngitis J06.0 Additional Codes PHQ-9 - 48060 - PHQ-9 Billing: Yes ([id number]) ANNAMARIA-7 Assessment Billing - ANNAMARIA-7 Assessment Tool: ANNAMARIA-7 Assessment 02812 ([id number]) Assessment & Plan Assessment & Plan (1) Acute laryngopharyngitis: Code(s): J06.0 - Acute laryngopharyngitis Category: Medical Plan: The patient's symptoms are suspected to be viral, likely from a Thanksgiving exposure, but there is concern for a superimposed bacterial infection given her worsening symptoms and ear pain. To address potential bacterial causes such as pneumonia, strep throat, or an ear infection, Augmentin will be prescribed twice a day for 10 days. To reduce inflammation associated with laryngitis, a course of prednisone 40 mg will be prescribed for three days. Cough medicine with codeine will also be provided for chest congestion. The patient was advised to seek emergency care for trouble breathing or swallowing, or hemoptysis. She was also instructed that if hoarseness persists for more than 3 to 4 weeks, an ENT referral will be made. Plan Plan Patient was informed and verbally consented to the use of an ambient scribe for clinic note documentation during this visit. 1. Acute Laryngopharyngitis The patient's symptoms are suspected to be viral, likely from a Thanksgiving exposure, but there is concern for a superimposed bacterial infection given her worsening symptoms and ear pain. To address potential bacterial causes such as pneumonia, strep throat, or an ear infection, Augmentin will be prescribed twice a day for 10 days. To reduce inflammation associated with laryngitis, a course of prednisone 40 mg will be prescribed for three days. Cough medicine with codeine will also be provided for chest congestion. The patient was advised to seek emergency care for trouble breathing or swallowing, or hemoptysis. She was also instructed that if hoarseness persists for more than 3 to 4 weeks, an ENT referral will be made. I discussed with the patient that her symptoms of laryngitis and pharyngitis appeared to be viral in nature, likely from an exposure on . However, due to the worsening symptoms, ear pain, and sensation of it moving into her chest, I explained there is a concern for a secondary bacterial infection like an ear infection, strep throat, or pneumonia. I explained the plan to treat with Augmentin for broad bacterial coverage, prednisone for a few days to reduce laryngeal inflammation, and a cough medicine with codeine for symptomatic relief. I advised her of strict return precautions, instructing her to go to the ER for any trouble breathing, difficulty swallowing, or if she spits up blood. I also informed her that if hoarseness persists beyond 3 to 4 weeks, we would need to refer her to an ENT specialist for further evaluation. I cautioned her against drinking alcohol or driving while taking the cough medicine with codeine. Medications: New amoxicillin-pot clavulanate 875-125 mg 1 tab PO BID 20 tabs 0RF 10 days prednisone 40 mg (2 x 20 mg) PO DAILY 6 tabs 0RF 3 days codeine-guaifenesin 10-100 mg/5 mL 5 mL PO Q6H PRN 120 mL 0RF cough Patient Instructions: - Take Augmentin twice a day for 10 days to treat a possible bacterial infection. - Take prednisone 40 mg once a day for 3 days to help reduce the swelling in your throat. - You may take the prescribed cough medicine to help with your cough and chest congestion. - Do not drink alcohol or drive while taking the cough medicine with codeine. - Go to the emergency room right away if you have any trouble breathing, trouble swallowing, or if you start spitting up blood. - If your hoarse voice does not get better in 3 to 4 weeks, contact the office for a referral to an ear, nose, and throat (ENT) specialist. - Your prescriptions will be sent to [facility] on [facility].
--- OUTSIDE RECORDS SUMMARY | 2025-09-21 13:42 | XMS_ITS | Clinical Summary ---
Author Organization [facility] Address [address] [place] [address] Phone Care Team Providers Care Sulfonation Equipment Operator Name Role Phone Luis Carmichael MD Primary Care Provider [phone] Surgical History Surgery Date Site/Laterality Comments HYSTERECTOMY [...] Procedure Name Priority Date/Time Associated Diagnosis Comments [facility] DEXA AXIAL SKELETON Routine 10/22/2020 2:10 PM EST Encounter for screening for osteoporosis from Last 3 Months or Most Recently Relevant to Health Maintenance Results * [facility] DEXA AXIAL SKELETON (10/22/2020 2:10 PM EST) Anatomical Region Laterality Modality Mammography 10/22/2020 10:3 1 AM EST Narrative 10/22/2020 2:[address] [facility] Diagnostic Imaging Department [address] [place] [address] Patient: CHI DONALDSON/Age/Sex: 1940 - 80 - F Unit#: [id number] Location/Status: SPDIMAM/REG CLI Mnemonic/Ordering Site: MAMDEXAAX/SPMAM Ordering [...] of hip fracture of 1.7 percent. Code 76183 Dictating Physician: CHRISTOPHER PALMER MD Electronically Signed by: CHRISTOPHER PALMER MD Dic Date/Time: 10/22/20 1405 Sign date/Time: 10/22/20 1410 Procedure Note Roxana Palmer MD - 10/07/2022 [facility] Diagnostic Imaging Department [address] [place] [address] Patient: CHI DONALDSON Alcon Reyes/Age/Sex: 1940 - 80 - F Unit#: [id number] Location/Status: SPDIMAM/REG CLI Mnemonic/Ordering Site: MAMDEXAAX/SPMAM Ordering [...] of hip fracture of 1.7 percent. Code 63306 Dictating Physician: CHRISTOPHER PALMER MD Electronically Signed by: CHRISTOPHER PALMER MD Dic Date/Time: 10/22/20 1405 Sign date/Time: 10/22/20 1410 Oscar Shepard MD IMG BI PROCEDURES Final Result from Last 3 Months or Most Recently Relevant to Health Maintenance Insurance MEDICARE Care Teams Sulfonation Equipment Operator Relationship Specialty Start Date End Date Luis Carmichael MD PCP - General Internal Medicine 03/29/25
== END 2025-09-21 11:26 | disposition home or self-care (01) ==
LOC: HO.HMCSH 10:54
PROVIDERS: PCP Internal Medicine; Visit Provider Physician Assistant Medical
DX: J06.0 Acute laryngopharyngitis (principal)

== ENCOUNTER 2025-10-06 10:54 | Outpatient (AMB) | payer MEDICARE, OTHER, SELFPAY ==
[2025-10-06 11:14] VITALS: BP 144/72; PULSE 71; TEMP 36.8; O2SAT 95; BMI 31.4
--- NOTE | 2025-10-06 11:14 | MHC.OFFWIV ---
Intake Vital Signs 10/06/25 11:14 Height 5 ft 5 in Weight 189 lb BMI 31.4 BP 144/72 H Blood Pressure Location Lt brachial Position Sitting Pulse 71 Pulse Source Pulse Oximeter Temp 98.2 F Temp Source Oral Pulse Oximetry (%) 95 Oxygen Delivery Method Room Air Intake Visit Reasons: EP Voice loss Intake Note: Patient presents c/o loss of voice since yesterday - patient was seen & treated for laryngitis about 2-3 weeks ago & it went away until yesterday. Patient Tobacco Use Status: Former Tobacco user Allergies codeine Allergy (Verified 10/06/25 11:18) Unknown- per H&P levofloxacin (From Levaquin) Allergy (Verified 10/06/25 11:18) unknown - per H&P HPI HPI Comments History of Present Illness Details She presents wirh loss of voice present with her Laryngitis in the past Last episode was 2.5 weeks ago She was seen telehealth ad given amoxicillin, cough syrup and prednisone x 3 days She felt 100% better Now she has lost voice No other symptoms No fever or chills + normal energy and appetite for baseline No congestion + cough, with some phlegm She said minimal L sided ear pain Tyelnol helps No worsening factors Worse at end of day Quit smoking over 60 years ago [facility] Medical History (Updated 10/06/25 @ 12:01 by Bindu Ambriz PA-C) Acute laryngopharyngitis Essential hypertension COVID-19 vaccine series completed History of skin cancer On beta adalberto at home Hypertension DM type 2 (diabetes mellitus, type 2) Surgical History Hx of cataract extraction History of back surgery History of umbilical hernia repair History of total bilateral knee replacement History of bilateral carpal tunnel release History of arthroscopy of both knees Hx of cholecystectomy Hx of section Hx of hysterectomy S/P lumbar microdiscectomy Hx of foot surgery Family History Mother AD (Alzheimer's disease) Father Kidney failure Social History Housing: House Are you a primary chronic care nurse to a significant other at home: No Do you presently have visiting nurse or other home services: No Alcohol intake: current Alcohol intake frequency: does not drink Patient Tobacco Use Status: Former Tobacco user service: No Current occupational status: retired Cognitive needs: No Hearing needs: No Vision needs: Yes (rx glasses) Review of Systems Const Denies chills, Denies fatigue, Denies fever(s) and Denies headache(s) Eyes Denies change in vision ENT Denies headache(s), Denies nasal congestion, Denies sore throat, Denies tongue swelling and Reports other (loss of voice) Card Denies chest pain and Denies dyspnea Resp Reports cough, Denies dyspnea and Denies wheezing GI Denies vomiting Musc Denies myalgias Neuro Denies headache(s) Endo Denies fatigue Aller/Immun Denies tongue swelling and Denies wheezing Physical Exam Exam Exam: General: Non-toxic, NAD. Speaking full sentences. Skin: Warm dry throughout Eye: EOMI HENT: Airway patent. Uvula midline. No pharyngeal erythema or edema. No AUTOMOTIVE DRIVABILITY TECHNICIAN. Oral mucosa moist Bilateral canals clear. TM non-erythematous, non-bulging. No TM perforation or hemotympanum noted. Respiratory: CTA bilaterally. No wheezes, rales or rhonchi Neck: Trachea midline. No lymphadenopathy Cardiac: RRR. No murmur Neurology: Alert. No aphasia or facial droop. Gait without abnormality Psych: Good mood and affect Vital Signs: Last Vital Signs Temp 98.2 F 10/06/25 11:14 Pulse 71 10/06/25 11:14 BP 144/72 H 10/06/25 11:14 Pulse Ox 95 10/06/25 11:14 Oxygen Delivery Method Room Air 10/06/25 11:14 BMI result Body Mass Index 31.4 Assessment & Plan Assessment & Plan (1) Laryngitis: Code(s): J04.0 - Acute laryngitis Plan: Patient seen and evaluated. Non-toxic appearing. Airway patent. Discussed with pt and that laryngitis is mostly viral and or secondary to overuse She will be given an additional 3 days of prednisone (take with food. avoid alcohol or nsaids. take early in day) Discussed antihistamine use x 3 weeks Increase fluids, voice rest She will monitor symptoms and f/u with PCP Patient gave verbal understanding and had no additional questions or concerns at time of discharge All questions answered Medications: Refilled prednisone 40 mg (2 x 20 mg) PO DAILY 6 tabs 0RF 3 days Coding Level of Care Code Est Pt Level 3 (23615) Diagnoses Laryngitis J04.0
--- OUTSIDE RECORDS SUMMARY | 2025-10-06 12:45 | XMS_ITS | Clinical Summary ---
Author Organization [facility] Address [address] [place] [address] Phone Care Team Providers Care Floor Scraper Name Role Phone Luis Carmichael MD Primary Care Provider [phone]- [phone] Surgical History Surgery Date Site/Laterality Comments HYSTERECTOMY [...] Procedure Name Priority Date/Time Associated Diagnosis Comments [facility] DEXA AXIAL SKELETON Routine 10/22/2020 2:10 PM EST Encounter for screening for osteoporosis from Last 3 Months or Most Recently Relevant to Health Maintenance Results * [facility] DEXA AXIAL SKELETON (10/22/2020 2:10 PM EST) Anatomical Region Laterality Modality Mammography 10/22/2020 10:3 1 AM EST Narrative 10/22/2020 2:10 PM EST [facility] Diagnostic Imaging Department [address] [place] [address] Patient: CHI DONALDSON/Age/Sex: 1940 - 80 - F Unit#: [id number] Location/Status: SPDIMAM/REG CLI Mnemonic/Ordering Site: MAMDEXAAX/SPMAM Ordering [...] of hip fracture of 1.7 percent. Code 39642 Dictating Physician: CHRISTOPHER PALMER MD Electronically Signed by: CHRISTOPHER PALMER MD Dic Date/Time: 10/22/20 1405 Sign date/Time: 10/22/20 1410 Procedure Note Roxana Palmer MD - 10/07/2022 [facility] Diagnostic Imaging Department [address] [place] [address] Patient: CHI DONALDSON Alcon Reyes/Age/Sex: 1940 - 80 - F Unit#: [id number] Location/Status: SPDIMAM/REG CLI Mnemonic/Ordering Site: MAMDEXAAX/SPMAM Ordering [...] of hip fracture of 1.7 percent. Code 21873 Dictating Physician: CHRISTOPHER PALMER MD Electronically Signed by: CHRISTOPHER PALMER MD Dic Date/Time: 10/22/20 1405 Sign date/Time: 10/22/20 1410 Oscar Shepard MD IMG BI PROCEDURES Final Result from Last 3 Months or Most Recently Relevant to Health Maintenance Insurance MEDICARE Care Teams Floor Scraper Relationship Specialty Start Date End Date Luis Carmichael MD PCP - General Internal Medicine 03/29/25
== END 2025-10-06 11:59 | disposition home or self-care (01) ==
PROVIDERS: PCP Internal Medicine; Visit Provider Physician Assistant
DX: J04.0 Acute laryngitis (principal)

== ENCOUNTER → 2025-10-06 10:54 | Outpatient (BNVA) | payer MEDICARE, OTHER, SELFPAY | PROVIDERS: PCP Internal Medicine; Visit Provider Physician Assistant | DX: J04.0 Acute laryngitis (principal) | CPT/HCPCS: 99212 ==